=== PATIENT | male | born 1965 | race Caucasian/White ===

== ENCOUNTER 2017-07-25 06:55 | Day surgery (SDC) | payer BC, OTHER ==
[~2017-07-25 06:55] MED LIST: FLU VACC QS2017-18 36 mo. & older 0.5 ML SYRINGE IM ONE
[2017-07-25 07:26] VITALS: BMI 33.6
[2017-07-25 07:30] VITALS: BP 114/62; TEMP 97.7
--- NOTE | 2017-07-25 12:25 | CT ---
CT THORACIC SPINE WITH CONTRAST: (CT THORACIC MYELOGRAM) Date: 07/25/17 HISTORY: 52-year-old male with thoracic spine pain and thoracic radiculopathy. FINDINGS: Minimal, chronic-appearing anterior wedging of T10 and T11 vertebral bodies. These appear to be chron ic. Multilevel mild and mild to moderate degenerative disc changes throughout the upper, mid, and low er thoracic spine levels. The thoracic spinal cord is normal in size and position. Mild encroachment upon the left anterior aspect of the spinal canal by shallow central and left paracentral disc-osteop hyte complex at T11-12. Shallow, broad based midline disc-osteophytic bar complex at T10-11, abutting the ventral surface of the spinal cord, and causing mild central spinal canal stenosis. At T4-5, the re is a tiny central disc protrusion abutting the ventral surface of the spinal cord. No high grade n eural foraminal stenosis, or high grade central spinal canal stenosis, at any level. No destructive o sseous lesion. Multiple anterior end plate marginal osteophytes protruding into the prevertebral spac e, small and moderate sized at multiple levels. Otherwise, no major pathology of the perivertebral sp aces. No aneurysm of the descending thoracic aorta. There is a thin, plate-like rind of mild dependen t atelectasis abutting the right posterior pleural surface. No pleural effusion. IMPRESSION: Mild to moderate thoracic spondylosis. POS: TRUE
--- NOTE | 2017-07-25 13:11 | CT ---
CT CERVICAL SPINE WITH CONTRAST (CT CERVICAL MYELOGRAM): Date: 07-25-17 History: 52-year-old male with cervical radiculopathy. FINDINGS: Vertebral body heights are maintained. There are anterior metallic plate and screws at C5, C6, and C7 . Cervical spinal canal is diffusely small on a congenital bases due to developmentally short pedicle s. This is exacerbated by hypertrophic degenerative changes as described below. C1-2: No high grade degenerative changes of atlantoaxial and atlantooccipital joints. No central sten osis. C2-3: Mild central spinal canal stenosis, entirely on a developmental basis. Disc space maintained. N o high grade neural foraminal stenosis. No high grade degenerative facet changes. No high grade neura l foraminal stenosis. C3-4: Shallow, mild diffuse disc bulge exacerbates the developmentally small caliber spinal canal cau sing mild to moderate central spinal canal stenosis. Mild to moderate bilateral neural foraminal sten osis. Mild disc space narrowing. No high grade degenerative facet changes. C4-5: Disc space maintained. There is a central disc herniation which indents the spinal cord, and sl ightly posteriorly displaces it. This appears to be new or worse since the MRI of 01-26-14, but it was present on the MRI of 02-12-17, and has not significantly changed since then. This, together with the mild diffuse disc bulge, superimposed on the developmentally small caliber spinal canal, results in m oderate degree of central spinal canal stenosis. There is bilateral neural foraminal stenosis, modera te on the right and mild to moderate on the left. C5-6: The previously demonstrated broad based disc/osteophytic bar complex that was impinging on the spinal cord, causing severe central spinal canal stenosis, on the previous MRI of 12-13-16, has been s urgically resected. Currently, there is moderate central spinal canal stenosis, almost entirely on a developmental basis. Bilateral uncinate process osteophytes remain, causing severe chronic bilateral neural foraminal stenosis. C6-7: Previously on the MRI there was severe central spinal canal stenosis and chronic cord impingeme nt due to asymmetrically broad based/disc osteophyte complex, asymmetrically worse on the left side t harrison the right, impinging on the spinal cord. Currently on the CT, this area is difficult to evaluate because of streak artifact from the shoulders and from the hardware, but there may have been surgical resection of that disc/osteophyte complex. Currently there continues to be moderate to severe centra l spinal canal stenosis on a developmental basis, but the image resolution is poor at this level with regard to the spinal canal. Bilateral moderate to severe neural foraminal stenosis. No high grade de generative facet changes. C7-T1: Mild central canal stenosis almost entirely on a developmental basis. Bilateral moderate neura l foraminal stenosis. Mild to moderate bilateral degenerative facet changes. IMPRESSION: 1. Cervical spinal canal is diffusely small in caliber on a congenital basis due to developmentally s hort pedicles. This is exacerbated by cervical spondylosis. 2. Mild to moderate cervical spondylosis. 3. Status post anterior cervical discectomy and fusion at C5-6-7, with improvement in the previously severe central spinal canal stenoses at those levels. 4. The central disc herniation chronically impinging on the spinal cord at C4-5 remains. 5. Bilateral neuroforaminal stenosis at multiple levels, worst at C5-6. 6. Moderate facet osteoarthrosis bilaterally at C7-T1. POS: TRUE
--- NOTE | 2017-07-25 13:25 | RAD ---
MYELOGRAM CERVICAL MYELOGRAM THORACIC: Date: 07/25/17 HISTORY: 52-year-old male with cervicalgia, cervical radiculopathy, and thoracic spine pain. TECHNIQUE: Signed, informed consent obtained. Patient placed in prone [place] position on fluoroscopy table. Lower b ack prepped and draped in the usual sterile fashion. 25 gauge needle used to apply buffered lidocaine superficially and deeply. 22 gauge spinal needle advanced into spinal canal from right paramedian ap proach at the L4-5 level under brief, intermittent fluoroscopy. Upon brisk return of clear CSF, a tot al of 10 mL of CSF was slowly removed. A total of 10 mL of Isovue M300 was injected intrathecally. Ne edle was removed. The table was tilted in the prone Trendelenburg position to allow the contrast to f low into the thoracic spine and cervical spine. The patient was taken to CT. The patient tolerated th e procedure well. No complications. FINDINGS: There is multilevel mild to moderate degenerative disc disease throughout the thoracic spine. Minimal chronic loss of height of the T11 and T12 levels. Moderate disc space narrowing at L3-4 in the lumba r spine with end plate osteophyte encroachment upon the anterior aspect of the spinal canal. At least mild central spinal canal stenosis at L3-4 on the single, limited myelographic image frontal view of the lumbar spine. Contrast flows into the thoracic spinal canal and cervical spinal canal. ACDF hard hillman at C5-6-7. Slight reversal of curvature in the cervical spine. Developmentally small caliber spi nal canal of the cervical spine. IMPRESSION: 1. Successful thoracic and cervical myelogram. 2. See separate reports of the CT myelograms of the thoracic spine and cervical spine. 3. Status post anterior cervical diskectomy and fusion at C5-6-7. 4. Developmentally small caliber cervical spinal canal. 5. Mild to moderate thoracic spondylosis. 6. Moderate degenerative disc disease at L3-4 in the lumbar spine. POS: [facility]
== END 2017-07-25 12:00 | disposition home or self-care (01) ==
LOC: RAD 06:55
PROVIDERS: ATTEND Neurological Surgery
PROC: B01B1ZZ Fluoroscopy of Spinal Cord using Low Osmolar Contrast (ICD-10-PCS; principal; 2017-07-25)
DX: M54.12 Radiculopathy, cervical region (principal); M54.6 Pain in thoracic spine; E03.9 Hypothyroidism, unspecified; E29.1 Testicular hypofunction; M47.814 Spondylosis without myelopathy or radiculopathy, thoracic region; K21.9 Gastro-esophageal reflux disease without esophagitis; F41.0 Panic disorder [episodic paroxysmal anxiety]; F32.9 Major depressive disorder, single episode, unspecified; Z79.899 Other long term (current) drug therapy; Z88.5 Allergy status to narcotic agent; Z88.8 Allergy status to other drugs, medicaments and biological substances; Z98.84 Bariatric surgery status; Z98.1 Arthrodesis status; Z98.890 Other specified postprocedural states; Z87.891 Personal history of nicotine dependence
CPT/HCPCS: 62305; 72126; 72129

== ENCOUNTER 2018-04-24 11:51 | Inpatient (IN) | payer BC, OTHER ==
[~2018-04-24 11:51] MED LIST changes: -FLU VACC QS2017-18 36 mo. & older 0.5 ML SYRINGE IM ONE; +ISOVUE-370 76%-LOCM 1 ML ONE; +Iopamidol 370 76% 50 ML VIAL FS ONE
[2018-04-24 12:32] LABS: #Lymphocytes 0.6 thou/uL (1.20-3.40); #Monocytes 0.8 thou/uL (0.11-0.59); #Neutrophils 4.2 thou/uL (1.40-6.50); %Basophils 0.1 % (0.0-1.0); %Eosinophils 0.4 % (0.0-10.0); %Lymphocytes 9.9 % (21.0-51.0); %Monocytes 13.5 % (0.0-10.0); %Neutrophils 76.2 % (42.0-75.0); Hemoglobin 15.2 g/dL (14.0-18.0); Mean Corpuscular HGB CONC 34.8 g/dL (32.0-36.0); Mean Corpuscular Hemoglobin 31.3 pg (27.0-31.0); Mean Platelet Volume 7.9 fL (7.4-10.4); Platelet Count 158 thou/uL (130-400); RBC Distribution Width 13.2 % (11.5-14.5); Red Blood Cell (RBC) Count 4.84 mill/uL (4.70-6.10); White Blood Cell (WBC) Count 5.6 thou/uL (4.8-10.8)
[2018-04-24 12:58] LABS: ALT (SGPT) 17 U/L (8-55); AST (SGOT) 20 U/L (5-34); Albumin 3.9 g/dL (3.5-5.0); Alkaline Phosphatase 54 U/L (40-150); Anion Gap 14 mmol/L (10-20); BUN (Urea Nitrogen) 13 mg/dL (8.4-25.7); Bilirubin, Total 0.9 mg/dL (0.2-1.2); Calc. Creatinine Clearance 0 mL/min (70-130); Calcium 9.2 mg/dL (7.8-10.44); Carbon Dioxide 25 mmol/L (22-29); Chloride 102 mmol/L (98-107); Estimated GFR-MDRD 78; Globulin 3.3 g/dL (2.4-3.5); Glucose 143 mg/dL (70-105); Potassium 4.2 mmol/L (3.5-5.1); Protein, Total 7.2 g/dL (6.0-8.3); Sodium 137 mmol/L (136-145)
[2018-04-24] MEDS ORDERED: Ondansetron HCl/PF 4 MG/2 ML Vial ONE ×2 (13:01→14:43)
[2018-04-24] MEDS ORDERED: Morphine 4 MG/ML VIAL ONE (14:22)
[2018-04-24] MEDS ORDERED: Promethazine HCl 25 MG/ML VIAL ONE (15:08)
[2018-04-24] MEDS ORDERED: Water For Inject, Bacteriostat 30 ML ONE (15:08)
[2018-04-24] MEDS ORDERED: Pantoprazole 40 MG VIAL ONE (15:08)
--- NOTE | 2018-04-24 16:35 | CT ---
CT ABDOMEN AND PELVIS WITH IV CONTRAST: DATE: 04/24/18. HISTORY: Abdominal pain since Sunday that started shortly after eating. FINDINGS: There is mild atelectasis present at each lung base. Post cholecystectomy changes are noted. The liver, spleen, pancreas, bilateral adrenal glands, kidneys, and urinary bladder demonstrate a nor mal CT appearance. Vascular calcifications are seen in the abdominal aorta and involving the iliac a rteries. There are dilated loops of small bowel measuring up to 4.2 cm in diameter. The most distal loops of ileum are normal in caliber. However, there is only a smooth transition poi nt located within the left lower quadrant. An abrupt transition point is not visualized, but finding s are worrisome for partial small bowel obstruction. There is a small amount of fluid/mesenteric stephanie ma within the left aspect of the abdomen in the region of tapering to more normal-caliber small bowel . No fluid collection is seen to suggest an abscess. There is no lymphadenopathy seen. Degenerative changes are noted in the spine. IMPRESSION: 1. Findings suggestive of a low-grade small bowel obstruction with gradual transition to more normal -caliber loops of small bowel within the distal ileum located in the left lower quadrant. 2. Very small amount of free fluid/mesenteric edema. 3. Colonic diverticulosis. POS: [facility]
[2018-04-24 17:41] LABS: Bilirubin Negative (Negative); Blood, Urine Negative (Negative); Clarity CLEAR (Clear); Glucose, Urine (Dipstick) Negative (Negative); Leukocyte Negative (Negative); Nitrite Negative (Negative); Protein, Urine (Dipstick) Negative (Neg-Trace); Urobilinogen 0.2 mg/dL (0.2-1.0)
[2018-04-24 17:45] LABS: Specific Gravity, Urine 1.051 (1.002-1.036)
--- NOTE | 2018-04-24 17:46 | HP ---
CHIEF COMPLAINT: Nausea, vomiting. HISTORY OF PRESENT ILLNESS: This is a 53-year-old male who is status post laparoscopic gastric sleev e back in 2012, who now presents with a 4-day history of nausea, bilious vomiting associated with abd ominal distention and pain. He initially started at 361 pounds, lost down to 250 pounds. He has not seen me in a few years, because he has been doing so well. CT scan shows evidence of partial small- bowel obstruction. The patient's pain is described as 4/10, diffuse, mild. He has vomited even stil l a few times here in the emergency room. PAST MEDICAL HISTORY: Hypothyroidism, depression, left inguinal hernia, cholecystitis. PAST SURGICAL HISTORY: Laparoscopic sleeve gastrectomy, left inguinal hernia, laparoscopic cholecyst ectomy. MEDICATIONS: Medicines taken daily include levothyroxine, pantoprazole. ALLERGIES TO MEDICINES: CODEINE, SULFACET, SOMA. REVIEW OF SYSTEMS: Ten-system review of systems is otherwise negative unless described above. FAMILY HISTORY: Noncontributory to GI malignancy or anesthetic-related complication. PHYSICAL EXAMINATION: VITAL SIGNS: His blood pressure is 147/85. His pulse is 85. He is afebrile. HEENT: Sclerae are anicteric. Oropharynx is clear. NECK: No lymphadenopathy. CHEST: Clear. HEART: Regular rate and rhythm. ABDOMEN: Soft. Diffusely tender and distended with decreased bowel sounds. Well-healed abdominal i ncisions without obvious hernia. EXTREMITIES: No ischemia or edema to extremities. LABORATORY AND X-RAY FINDINGS: CT scan shows transition zone in ileum, partial small-bowel obstructi on. LABORATORY DATA: White blood cell count is 5, hemoglobin 15, platelet count is 158. Sodium 137, pot assium 4.2, creatinine 1. ASSESSMENT: Partial small-bowel obstruction, history of morbid obesity, 100 plus pound weight loss a fter gastric sleeve, hypothyroidism. PLAN: Admit to the surgical floor to my service. NG tube has been placed to low intermittent wall s uction. Check daily labs. Hopefully, will resolve non-operatively.
[2018-04-24] MEDS ORDERED: Promethazine HCl 25 MG/ML VIAL IM PRN (18:14)
[2018-04-24] MEDS ORDERED: hydrALAZINE 20 MG/ML VIAL SLOW IVP PRN (18:14)
[2018-04-24] MEDS ORDERED: Dextrose 50% Abboject 50 ML SYRINGE SLOW IVP PRN (18:14)
[2018-04-24] MEDS ORDERED: Dextrose 5% in Water 1,000 ML IV PRN (18:14)
[2018-04-24] MEDS ORDERED: Morphine 4 MG/ML VIAL SLOW IVP PRN (18:14)
[2018-04-24] MEDS: D5 1/2 NS w/20 mEq KCL 1,000 ML IV SCH (18:50)
[2018-04-24 19:28] VITALS: BMI 34.3
[2018-04-24] MEDS: Thiamine HCl 200 MG/2 ML VIAL SLOW IVP SCH (21:15)
[2018-04-24] MEDS: Enoxaparin Sodium 40 MG/0.4 ML SYRINGE SC SCH (21:15)
[2018-04-25] MEDS: D5 1/2 NS w/20 mEq KCL 1,000 ML IV SCH ×3 (03:13→21:00)
[2018-04-25 06:23] LABS: Anion Gap 6 mmol/L (10-20); BUN (Urea Nitrogen) 13 mg/dL (8.4-25.7); Calc. Creatinine Clearance 120 mL/min (70-130); Calcium 8.3 mg/dL (7.8-10.44); Carbon Dioxide 32 mmol/L (22-29); Chloride 103 mmol/L (98-107); Estimated GFR-MDRD 67; Glucose 125 mg/dL (70-105); Potassium 3.8 mmol/L (3.5-5.1); Sodium 137 mmol/L (136-145)
[2018-04-25 07:01] LABS: Band 21 % (5-11); Eosinophils 7 % (0-10); Hemoglobin 13.6 g/dL (14.0-18.0); Lymphocytes 31 % (21-51); MDiff Complete? YES; Mean Corpuscular HGB CONC 34.4 g/dL (32.0-36.0); Mean Corpuscular Hemoglobin 31.3 pg (27.0-31.0); Mean Corpuscular Volume 91.2 fL (78.0-98.0); Mean Platelet Volume 7.9 fL (7.4-10.4); Monocytes 17 % (0-10); Neutrophil 23 % (42-75); Platelet Count 144 thou/uL (130-400); RBC Distribution Width 13.3 % (11.5-14.5); Red Blood Cell (RBC) Count 4.33 mill/uL (4.70-6.10); White Blood Cell (WBC) Count 5.5 thou/uL (4.8-10.8)
[2018-04-25] MEDS: Pantoprazole 40 MG VIAL IVP SCH (09:11)
--- NOTE | 2018-04-25 11:17 | PRG ---
DATE OF SERVICE: 04/25/2018 Mr. Mejia feels better today. He actually had a small bowel movement and passed a small amount of gas. PHYSICAL EXAMINATION: VITAL SIGNS: He is afebrile. His vital signs are stable. ABDOMEN: Softer, less distended, less tender today. He has occasional bowel sounds. LABORATORY DATA: White blood cell count is 5, hemoglobin 13, platelet count is 144. Sodium 137, pot assium 3.8, creatinine 1.14. ASSESSMENT: Partial small-bowel obstruction. PLAN: Continue NG tube decompression. His KUB shows persistent dilated small intestine. Plan Gastr ografin small bowel follow through tomorrow.
--- NOTE | 2018-04-25 12:10 | RAD ---
TWO VIEWS OF THE ABDOMEN: Indication: Small bowel obstruction. FINDINGS: There are dilated loops of small bowel within the upper central abdomen with differential airfluid le vels. Gastric catheter in place. The catheter is coiled in the region of the fundus and projects back into the distal esophagus. Recommend re-positioning. IMPRESSION: 1. Moderate to prominent partial small bowel obstruction. 2. Gastric catheter coiled within the region of the distal esophagus. Recommend re-positioning. POS: TRUE
[2018-04-25] MEDS: Enoxaparin Sodium 40 MG/0.4 ML SYRINGE SC SCH (20:24)
[2018-04-25] MEDS: Thiamine HCl 200 MG/2 ML VIAL SLOW IVP SCH (20:24)
[2018-04-26] MEDS: D5 1/2 NS w/20 mEq KCL 1,000 ML IV SCH ×4 (00:51→16:34)
[2018-04-26 05:41] LABS: Anion Gap 8 mmol/L (10-20); BUN (Urea Nitrogen) 11 mg/dL (8.4-25.7); Calc. Creatinine Clearance 146 mL/min (70-130); Carbon Dioxide 27 mmol/L (22-29); Chloride 105 mmol/L (98-107); Estimated GFR-MDRD 84; Glucose 116 mg/dL (70-105); Potassium 3.8 mmol/L (3.5-5.1); Sodium 136 mmol/L (136-145)
[2018-04-26 06:04] LABS: Band 7 % (5-11); Eosinophils 1 % (0-10); Hemoglobin 13.1 g/dL (14.0-18.0); Lymphocytes 13 % (21-51); MDiff Complete? YES; Mean Corpuscular HGB CONC 34.7 g/dL (32.0-36.0); Mean Corpuscular Hemoglobin 31.5 pg (27.0-31.0); Mean Corpuscular Volume 90.8 fL (78.0-98.0); Mean Platelet Volume 7.9 fL (7.4-10.4); Monocytes 19 % (0-10); Neutrophil 59 % (42-75); Platelet Count 141 thou/uL (130-400); RBC Distribution Width 13.2 % (11.5-14.5); Reactive Lymphocytes 1 % (0-10); Red Blood Cell (RBC) Count 4.16 mill/uL (4.70-6.10); White Blood Cell (WBC) Count 6.3 thou/uL (4.8-10.8)
[2018-04-26] MEDS: Pantoprazole 40 MG VIAL IVP SCH (08:16)
[2018-04-26] MEDS ORDERED: MD-Gastroview 120 ML BOT ONE (10:15)
--- NOTE | 2018-04-26 15:41 | PDOC.GSPN ---
Surgery Progress Note: Subj - Subjective Patient reports: feels better (Having multiple bowel movements after SBFT) Surgery Progress Note: Obj - Vital signs Vital signs: Vital Signs - Most Recent Temp Pulse Resp BP Pulse Ox 98.0 F 108 H 16 131/74 94 L 04/26/18 08:16 04/26/18 08:16 04/26/18 08:16 04/26/18 07:19 04/26/18 08:16 - Physical Exam General: no distress Cardiovascular: regular rate and rhythm Respiratory: clear to auscultation Abdomen: soft, non tender, other (still distended) Surgery Progress Note: Results - Labs Result Diagrams: 04/26/18 04:52 04/26/18 04:52 Lab results: Laboratory Results - last 24 hr 04/26/18 04/26/18 04:52 04:52 WBC 6.3 RBC 4.16 L Hgb 13.1 L Hct 37.8 L MCV 90.8 MCH 31.5 H MCHC 34.7 RDW 13.2 Plt Count 141 MPV 7.9 Neutrophils % (Manual) 59 Band Neuts % (Manual) 7 Lymphocytes % (Manual) 13 L Reactive Lymphs % 1 Monocytes % (Manual) 19 H Eosinophils % (Manual) 1 Sodium 136 Potassium 3.8 Chloride 105 Carbon Dioxide 27 Anion Gap 8 L BUN 11 Creatinine 0.94 Estimated GFR (MDRD) 84 Glucose 116 H Calcium 8.0 Surgery Progress Note: A/P - Problem (1) Small bowel obstruction Current Visit: Yes Code(s): K56.609 - UNSP INTESTNL OBST, UNSP TO PARTIAL VERSUS COMPLETE OBST Status: Acute - Plan Plan: DC NG -try clear liquids -home tomorrow if tolerates clears
[2018-04-26] MEDS ORDERED: Loratadine 10 MG TAB PO PRN (15:43)
--- NOTE | 2018-04-26 16:33 | RAD ---
GASTROGRAFIN SMALL BOWEL FOLLOW THROUGH: 04/26/18 INDICATION: Small bowel obstruction. COMPARISON: Two views of the abdomen dated 04/25/18. FINDINGS: Gastrografin small bowel follow through was performed over a 6.5 hour time period. There are numerous dilated loops of small bowel seen within the central abdomen. At 6.5 hours, there is eventual passag e of contrast into the level of the right hemicolon. No acute osseous abnormality is evident. Gastric catheter is seen within the left upper quadrant of the abdomen. Cholecystectomy clips are seen in th e right upper quadrant. IMPRESSION: Findings most consistent with high grade partial small bowel obstruction with eventual passage of gas trografin contrast to the colon by 6.5 hours. POS: TRUE
[2018-04-26] MEDS: Enoxaparin Sodium 40 MG/0.4 ML SYRINGE SC SCH (20:01)
[2018-04-26] MEDS: Thiamine HCl 200 MG/2 ML VIAL SLOW IVP SCH (20:01)
[2018-04-27] MEDS: D5 1/2 NS w/20 mEq KCL 1,000 ML IV SCH ×2 (01:54→15:53)
[2018-04-27] MEDS: Levothyroxine Sodium 50 MCG TAB PO SCH (06:09)
[2018-04-27] MEDS: Cyanocobalamin (Vitamin B-12) 1,000 MCG TAB PO SCH (08:29)
[2018-04-27] MEDS: Ubidecarenone 50 MG CAP PO SCH (08:29)
[2018-04-27] MEDS: Gabapentin 100 MG CAP PO SCH (08:30)
[2018-04-27] MEDS: Bupropion 150 MG XL TAB PO SCH (08:30)
[2018-04-27] MEDS: Pantoprazole 40 MG VIAL IVP SCH (08:30)
[2018-04-27] MEDS: Ascorbic Acid 500 mg Chewable Tablet PO SCH (08:30)
[2018-04-27] MEDS: Ondansetron HCl/PF 4 MG/2 ML Vial IVP PRN (15:43)
[2018-04-27] MEDS: Enoxaparin Sodium 40 MG/0.4 ML SYRINGE SC SCH (19:59)
[2018-04-27] MEDS: Thiamine HCl 200 MG/2 ML VIAL SLOW IVP SCH (20:05)
--- NOTE | 2018-04-27 23:01 | PDOC.GSPN ---
Surgery Progress Note: Subj - Subjective Narrative: I saw the patient this morning he was feeling good and having bowel movements. He was tolerating his clears and his abdominal exam was benign. He was advanced to full liquids with plans to possibly discharge home on full liquids as tolerated. He initially tolerated this well but then began having belching and some abdominal distention even as he continued to pass flatus. He was back down to clear liquids for this reason. Surgery Progress Note: Obj - Vital signs Vital signs: Vital Signs - Most Recent Temp Pulse Resp BP Pulse Ox 98.7 F 76 16 140/78 95 04/27/18 20:00 04/27/18 20:00 04/27/18 20:00 04/27/18 20:00 04/27/18 20:00 Surgery Progress Note: Results - Labs Result Diagrams: 04/26/18 04:52 04/26/18 04:52
[2018-04-28] MEDS: Levothyroxine Sodium 50 MCG TAB PO SCH (05:37)
[2018-04-28] MEDS: D5 1/2 NS w/20 mEq KCL 1,000 ML IV SCH (05:37)
[2018-04-28] MEDS: Gabapentin 100 MG CAP PO SCH (08:17)
[2018-04-28] MEDS: Bupropion 150 MG XL TAB PO SCH (08:17)
[2018-04-28] MEDS: Ascorbic Acid 500 mg Chewable Tablet PO SCH (08:17)
[2018-04-28] MEDS: Pantoprazole 40 MG VIAL IVP SCH (08:17)
[2018-04-28] MEDS: Cyanocobalamin (Vitamin B-12) 1,000 MCG TAB PO SCH (08:17)
[2018-04-28] MEDS: Ubidecarenone 50 MG CAP PO SCH (08:17)
--- NOTE | 2018-04-28 11:41 | RAD ---
KUB AND UPRIGHT: Date: 04/28/18 HISTORY: Small bowel obstruction. COMPARISON: CT examination done 04/24/18. FINDINGS: There are dilated small bowel loops, also air within the colon. The overall appearance is fairly etienne lar to the previous study. No free air. Postop cholecystectomy changes are seen. IMPRESSION: Moderately dilated small bowel loops with air within the colon consistent with a partial small bowel obstruction. POS: [facility]
--- NOTE | 2018-04-28 16:12 | PDOC.GSPN ---
Surgery Progress Note: Subj - Subjective Narrative: Patient with nausea vomiting and bloating after advancing to full yesterday. He was backed down to clears again and is feeling good again. Occasionally he has some crampy pain but then he passes gas or has a bowel movement and it resolves. KUB still shows dilated loops of small bowel. Abdomen is soft slightly distended but nontender and bowel sounds are present. Assessment/plan: Partial small bowel obstruction, likely persistent since he did not tolerate advancement of diet yesterday. I recommended to the patient that we consider making him nothing by mouth again but he is doing so well clears he is hesitant to proceed with this plan. Instead we'll leave him on the clear liquids and see if he tolerates some ensure. If he has any bloating or nausea have asked him to make himself strictly nothing by mouth. Ultimately if he does not tolerate advancement of diet he will require repeat surgery. He hasn 't really tolerated regular food and week some going to check some nutrition labs in the morning and start him on PPN. Surgery Progress Note: Obj - Vital signs Vital signs: Vital Signs - Most Recent Temp Pulse Resp BP Pulse Ox 99.3 F 66 18 126/68 97 04/28/18 11:16 04/28/18 11:16 04/28/18 11:16 04/28/18 11:16 04/28/18 11:16 Surgery Progress Note: Results - Labs Result Diagrams: 04/26/18 04:52 04/26/18 04:52
[2018-04-28] MEDS ORDERED: D5W-AA 4.25% with LYTES 1,000 ML BAG IV SCH (16:15)
[2018-04-28] MEDS: D5W-AA 4.25% with LYTES 1,000 ML IV SCH (17:32)
[2018-04-28] MEDS: Enoxaparin Sodium 40 MG/0.4 ML SYRINGE SC SCH (20:41)
[2018-04-28] MEDS: Thiamine HCl 200 MG/2 ML VIAL SLOW IVP SCH (20:42)
[2018-04-28] MEDS: Ondansetron HCl/PF 4 MG/2 ML Vial IVP PRN (21:53)
[2018-04-29] MEDS: D5W-AA 4.25% with LYTES 1,000 ML IV SCH ×2 (03:59→14:46)
[2018-04-29 05:45] LABS: INR-International Normal Ratio 1.2; PTT 32.6 SEC (22.9-36.1); Prothrombin Time 14.9 SEC (12.0-14.7)
[2018-04-29 05:46] LABS: #Eosinphils 0.3 thou/uL (0.0-0.7); #Lymphocytes 1.6 thou/uL (1.20-3.40); #Monocytes 0.9 thou/uL (0.11-0.59); #Neutrophils 4.5 thou/uL (1.40-6.50); %Basophils 0.3 % (0.0-1.0); %Eosinophils 4.1 % (0.0-10.0); %Lymphocytes 21.9 % (21.0-51.0); %Neutrophils 61.7 % (42.0-75.0); Hemoglobin 12.7 g/dL (14.0-18.0); Mean Corpuscular HGB CONC 34.2 g/dL (32.0-36.0); Mean Corpuscular Hemoglobin 31.5 pg (27.0-31.0); Mean Corpuscular Volume 92.1 fL (78.0-98.0); Mean Platelet Volume 7.8 fL (7.4-10.4); Platelet Count 150 thou/uL (130-400); Red Blood Cell (RBC) Count 4.04 mill/uL (4.70-6.10); White Blood Cell (WBC) Count 7.3 thou/uL (4.8-10.8)
[2018-04-29 06:03] LABS: ALT (SGPT) 24 U/L (8-55); AST (SGOT) 20 U/L (5-34); Albumin 3.3 g/dL (3.5-5.0); Alkaline Phosphatase 47 U/L (40-150); Anion Gap 10 mmol/L (10-20); BUN (Urea Nitrogen) 12 mg/dL (8.4-25.7); Bilirubin, Total 0.4 mg/dL (0.2-1.2); Calc. Creatinine Clearance 159 mL/min (70-130); Calcium 8.3 mg/dL (7.8-10.44); Carbon Dioxide 27 mmol/L (22-29); Cardiac Risk 3.3 (Less than 4.5); Chloride 106 mmol/L (98-107); Cholesterol 86 mg/dl (< 200 Desired); Estimated GFR-MDRD Greater than 90; Globulin 2.7 g/dL (2.4-3.5); Glucose 112 mg/dL (70-105); HDL Cholesterol 26 mg/dL (>60 Neg Risk); LDL Cholesterol, Calculated 41 mg/dL; Magnesium 2.2 mg/dL (1.6-2.6); Phosphorus 3.4 mg/dL (2.3-4.7); Potassium 4.1 mmol/L (3.5-5.1); Sodium 139 mmol/L (136-145); Triglycerides 96 mg/dL (Less than 150)
[2018-04-29] MEDS: Levothyroxine Sodium 50 MCG TAB PO SCH (06:04)
[2018-04-29] MEDS: Cyanocobalamin (Vitamin B-12) 1,000 MCG TAB PO SCH (07:55)
[2018-04-29] MEDS: Ubidecarenone 50 MG CAP PO SCH (07:56)
[2018-04-29] MEDS: Ascorbic Acid 500 mg Chewable Tablet PO SCH (07:57)
[2018-04-29] MEDS: Bupropion 150 MG XL TAB PO SCH (07:57)
[2018-04-29] MEDS: Pantoprazole 40 MG VIAL IVP SCH (07:59)
[2018-04-29] MEDS: Gabapentin 100 MG CAP PO SCH (08:00)
--- NOTE | 2018-04-29 16:49 | PDOC.GSPN ---
Surgery Progress Note: Subj - Subjective Narrative: Had another episode of bloating and cramping last night, which gradually resolved w zofran and passage of flatus. Feels fine today. Since he seems to have a persistent PSBO I will leave him on clears + ensure today and make him NPO after midnight; he may need ASHLIE. Prealbumin was slightly down; cont ensure and PPN. Surgery Progress Note: Obj - Vital signs Vital signs: Vital Signs - Most Recent Temp Pulse Resp BP Pulse Ox 98.7 F 62 16 112/68 97 04/29/18 15:44 04/29/18 15:44 04/29/18 15:44 04/29/18 15:44 04/29/18 15:44 Surgery Progress Note: Results - Labs Result Diagrams: 04/29/18 05:15 04/29/18 05:15 Lab results: Laboratory Results - last 24 hr 04/29/18 04/29/18 04/29/18 05:15 05:15 05:15 WBC RBC Hgb Hct MCV MCH MCHC RDW Plt Count MPV Neutrophils % Lymphocytes % Monocytes % Eosinophils % Basophils % Neutrophils # Lymphocytes # Monocytes # Eosinophils # Basophils # PT 14.9 H INR 1.2 APTT 32.6 Sodium 139 Potassium 4.1 Chloride 106 Carbon Dioxide 27 Anion Gap 10 BUN 12 Creatinine 0.86 Estimated GFR (MDRD) Greater than 90 Glucose 112 H Calcium 8.3 Phosphorus 3.4 Magnesium 2.2 Total Bilirubin 0.4 AST 20 ALT 24 Alkaline Phosphatase 47 Serum Total Protein 6.0 Albumin 3.3 L Globulin 2.7 Albumin/Globulin Ratio 1.2 Prealbumin 14.0 L Triglycerides 96 Cholesterol 86 LDL Cholesterol, Calc 41 HDL Cholesterol 26 Heart Disease Risk Ratio 3.3 04/29/18 05:15 WBC 7.3 RBC 4.04 L Hgb 12.7 L Hct 37.3 L MCV 92.1 MCH 31.5 H MCHC 34.2 RDW 13.0 Plt Count 150 MPV 7.8 Neutrophils % 61.7 Lymphocytes % 21.9 Monocytes % 12.0 H Eosinophils % 4.1 Basophils % 0.3 Neutrophils # 4.5 Lymphocytes # 1.6 Monocytes # 0.9 H Eosinophils # 0.3 Basophils # 0.0 PT INR APTT Sodium Potassium Chloride Carbon Dioxide Anion Gap BUN Creatinine Estimated GFR (MDRD) Glucose Calcium Phosphorus Magnesium Total Bilirubin AST ALT Alkaline Phosphatase Serum Total Protein Albumin Globulin Albumin/Globulin Ratio Prealbumin Triglycerides Cholesterol LDL Cholesterol, Calc HDL Cholesterol Heart Disease Risk Ratio
[2018-04-29] MEDS: Thiamine HCl 200 MG/2 ML VIAL SLOW IVP SCH (21:42)
[2018-04-29] MEDS: Enoxaparin Sodium 40 MG/0.4 ML SYRINGE SC SCH (21:42)
[2018-04-30] MEDS: D5W-AA 4.25% with LYTES 1,000 ML IV SCH ×3 (06:42→22:04)
[2018-04-30] MEDS: Levothyroxine Sodium 50 MCG TAB PO SCH (06:42)
--- NOTE | 2018-04-30 08:50 | PDOC.GSPN ---
Surgery Progress Note: Subj - Subjective Narrative: No nausea now. Passing gas. Still feels distended but having bowel movements Surgery Progress Note: Obj - Vital signs Vital signs: Vital Signs - Most Recent Temp Pulse Resp BP Pulse Ox 98.1 F 68 16 103/57 L 97 04/30/18 07:06 04/30/18 07:06 04/30/18 07:06 04/30/18 07:06 04/30/18 04:54 - Physical Exam General: no distress Cardiovascular: regular rate and rhythm Respiratory: clear to auscultation Abdomen: soft, non tender, other (Minimal distended. Positive bowel sounds.) Surgery Progress Note: Results - Labs Result Diagrams: 04/29/18 05:15 04/29/18 05:15 Surgery Progress Note: A/P - Problem (1) Small bowel obstruction Current Visit: Yes Code(s): K56.609 - UNSP INTESTNL OBST, UNSP TO PARTIAL VERSUS COMPLETE OBST Status: Acute - Plan Plan: Feels fine this am. -Try clears/fulls today -to OR tomorrow if doesn't tolerate
[2018-04-30] MEDS: Ascorbic Acid 500 mg Chewable Tablet PO SCH (08:53)
[2018-04-30] MEDS: Pantoprazole 40 MG VIAL IVP SCH (08:54)
[2018-04-30] MEDS: Cyanocobalamin (Vitamin B-12) 1,000 MCG TAB PO SCH (08:54)
[2018-04-30] MEDS: Ubidecarenone 50 MG CAP PO SCH (08:54)
[2018-04-30] MEDS: Gabapentin 100 MG CAP PO SCH (08:54)
[2018-04-30] MEDS: Bupropion 150 MG XL TAB PO SCH (08:54)
[2018-04-30] MEDS: Ondansetron HCl/PF 4 MG/2 ML Vial IVP PRN (18:34)
[2018-04-30] MEDS: Thiamine HCl 200 MG/2 ML VIAL SLOW IVP SCH (20:51)
[2018-04-30] MEDS: Enoxaparin Sodium 40 MG/0.4 ML SYRINGE SC SCH (20:51)
[2018-05-01] MEDS: D5W-AA 4.25% with LYTES 1,000 ML IV SCH ×3 (03:20→23:23)
[2018-05-01] MEDS: Levothyroxine Sodium 50 MCG TAB PO SCH (05:48)
--- NOTE | 2018-05-01 07:59 | PDOC.GSPN ---
Surgery Progress Note: Subj - Subjective Narrative: More bloating and nausea yesterday with clear liquids, had more distention and pain that has resolved Surgery Progress Note: Obj - Vital signs Vital signs: Vital Signs - Most Recent Temp Pulse Resp BP Pulse Ox 98.3 F 75 16 108/66 95 05/01/18 07:20 05/01/18 07:20 05/01/18 07:20 05/01/18 07:20 05/01/18 07:20 - Physical Exam General: no distress Cardiovascular: regular rate and rhythm Respiratory: clear to auscultation Abdomen: soft, non tender, nondistended, decreased bowel sounds Surgery Progress Note: Results - Labs Result Diagrams: 04/29/18 05:15 04/29/18 05:15 Surgery Progress Note: A/P - Problem (1) Small bowel obstruction Current Visit: Yes Code(s): K56.609 - UNSP INTESTNL OBST, UNSP TO PARTIAL VERSUS COMPLETE OBST Status: Acute - Plan Plan: SBFT showed delayed passage, unable to advance liquid diet -laparoscopy today, possible laparotomy
[2018-05-01] MEDS: Ubidecarenone 50 MG CAP PO SCH (09:48)
[2018-05-01] MEDS: Cyanocobalamin (Vitamin B-12) 1,000 MCG TAB PO SCH (09:48)
[2018-05-01] MEDS: Ascorbic Acid 500 mg Chewable Tablet PO SCH (09:48)
[2018-05-01] MEDS: Bupropion 150 MG XL TAB PO SCH (09:48)
[2018-05-01] MEDS: Gabapentin 100 MG CAP PO SCH (09:49)
[2018-05-01] MEDS: Pantoprazole 40 MG VIAL IVP SCH (09:49)
[2018-05-01] MEDS ORDERED: Lidocaine 1% PF 5 ML VIAL ONE (12:18)
[2018-05-01] MEDS ORDERED: PROPOFOL 200 MG/20 ML VIAL ONE (12:18)
[2018-05-01] MEDS ORDERED: Succinylcholine Chloride 20 MG/ML 10 ml SYRINGE FS ONE (12:18)
[2018-05-01] MEDS ORDERED: Glycopyrrolate 0.2 MG/ML 5 ML SYRINGE ONE (12:18)
[2018-05-01] MEDS ORDERED: CEFAZOLIN/Water 2 GM/20 ML SYRINGE ONE (17:44)
[2018-05-01] MEDS ORDERED: Midazolam HCl 2 mg/2 ml Vial ONE (17:45)
[2018-05-01] MEDS ORDERED: Bupivacaine/Epinephrine 0.25% 30 ML VIAL ONE (17:45)
[2018-05-01] MEDS ORDERED: Fentanyl 100 MCG/2 ML VIAL ONE ×3 (18:09→19:26)
[2018-05-01] MEDS ORDERED: SUGAMMADEX SODIUM 200 MG/2 ML VIAL ONE (18:49)
[2018-05-01] MEDS ORDERED: Ondansetron HCl/PF 4 MG/2 ML Vial IVP PRN (19:05)
[2018-05-01] MEDS ORDERED: Promethazine HCl 25 MG/ML VIAL IM PRN (19:05)
[2018-05-01] MEDS ORDERED: Promethazine HCl 25 MG/ML VIAL SLOW IVP PRN (19:05)
[2018-05-01] MEDS ORDERED: traMADol HCl 50 MG TAB PO PRN ×2 (19:56)
[2018-05-01] MEDS: Thiamine HCl 200 MG/2 ML VIAL SLOW IVP SCH (20:50)
[2018-05-01] MEDS: Enoxaparin Sodium 40 MG/0.4 ML SYRINGE SC SCH (20:52)
[2018-05-02] MEDS: D5W-AA 4.25% with LYTES 1,000 ML IV SCH (01:01)
[2018-05-02] MEDS: Levothyroxine Sodium 50 MCG TAB PO SCH (05:42)
[2018-05-02] MEDS: Ascorbic Acid 500 mg Chewable Tablet PO SCH (08:56)
[2018-05-02] MEDS: Gabapentin 100 MG CAP PO SCH (08:56)
[2018-05-02] MEDS: Cyanocobalamin (Vitamin B-12) 1,000 MCG TAB PO SCH (08:56)
[2018-05-02] MEDS: Ubidecarenone 50 MG CAP PO SCH (08:56)
[2018-05-02] MEDS: Bupropion 150 MG XL TAB PO SCH (08:57)
[2018-05-02] MEDS: Pantoprazole 40 MG VIAL IVP SCH (08:58)
[2018-05-02 09:02] VITALS: TEMP 98.3
[2018-05-02 12:57] VITALS: BP 147/73
--- NOTE | 2018-05-02 13:20 | DIS ---
DATE OF ADMISSION: 04/24/2018 DATE OF DISCHARGE: 05/02/2018 ADMIT DIAGNOSIS: Small-bowel obstruction. DISCHARGE DIAGNOSIS: Small-bowel obstruction. PROCEDURES: Diagnostic laparoscopy, lysis of adhesion 05/01/2018. CONDITION AT DISCHARGE: Improved. STAFF: Dr. Milan Sky. HOSPITAL COURSE: The patient was admitted, had early small bowel follow through that showed passage to the colon, although delayed, started on liquid diet. He did not tolerate that became more bloated . On 05/01/2018, patient was taken to the operating room by me for laparoscopy. His small bowel was run from ligament of Treitz to ileocecal valve. There was no significant obstruction; however, ther e was one single adhesion to the posterior abdominal wall that looked like it could have been the khris rce of the obstruction, this was low cut. Postop day 1, the patient is doing well. He started on cl ear liquids. He wants to go home. I recommended he do a few days of full liquids and then advanced diet before regular food. He will see me back in 2 weeks. Prescription given for tramadol and Zofran.
--- NOTE | 2018-05-03 11:43 | OP ---
DATE OF PROCEDURE: 05/01/2018. PREOPERATIVE DIAGNOSIS: Small-bowel obstruction. POSTOPERATIVE DIAGNOSIS: Small-bowel obstruction. PROCEDURE PERFORMED: Diagnostic laparoscopy with laparoscopic lysis of adhesion causing obstruction. SURGEON: Dr. Sky. ANESTHESIA: General. ESTIMATED BLOOD LOSS: Minimal. COMPLICATIONS: None. SPECIMEN: None. FINDINGS: Single adhesion in the posterior umbilicus. TECHNIQUE: The patient was taken to the operation room and placed supine on the table. After genera l anesthetic was obtained, the abdomen was shaved, prepped, and draped in a sterile fashion. A Bishop catheter had been placed. Curved incision was made below the umbilicus. Cautery was used to dissec t down to and score the fascia. Abdominal cavity entered bluntly using a Bri clamp. A 5 mm trocar was placed. High-flow pneumoperitoneum was obtained. Two left lower quadrant 5-mm ports were place d. The small bowel was run from the ileocecal valve proximally. There was an adhesion from the post erior peritoneum in the area of the umbilicus that was across the small intestine. This was taken do wn, releasing the obstruction. There were no other adhesions and the small intestine was marched all the way to the ligament of Treitz. No injury to any intra-abdominal structures. All port sites wer e infiltrated using local anesthetic. All ports are removed under camera visualization. Pneumoperit oneum was let down. PDS was used to close the fascial defect below the umbilicus. All incisions wer e irrigated and closed using 4-0 Monocryl and Dermabond. The patient returned to recovery in stable condition. All instrument counts, needle counts, lap counts were correct.
== END 2018-05-02 13:50 | disposition home or self-care (01) | DRG 337 ==
LOC: ERS 11:51 → SURG B 18:08 → SURG A 04-25 22:21
PROVIDERS: ADMIT Surgery; ATTEND Surgery
PROC: 0DN84ZZ Release Small Intestine, Percutaneous Endoscopic Approach (ICD-10-PCS; principal; 2018-05-01)
DX: K56.51 Intestinal adhesions [bands], with partial obstruction (principal); E03.9 Hypothyroidism, unspecified; Z88.5 Allergy status to narcotic agent; Z88.8 Allergy status to other drugs, medicaments and biological substances; Z79.899 Other long term (current) drug therapy; F32.9 Major depressive disorder, single episode, unspecified; Z98.84 Bariatric surgery status
CPT/HCPCS: 36415; 43752; 74019; 74177; 74250; 80048; 80053; 80061; 81003; 83605; 83690; 83735; 84100; 84134; 85025; 85610; 85730; 96361; 96374; 96375; 96376; A4216; C9113; J1650; J2001; J2250; J2270; J2405; J2550; J2704; J3010; J3411

== ENCOUNTER 2018-05-07 15:26 | Outpatient (CLI) | payer BC, OTHER ==
--- NOTE | 2018-05-07 17:29 | MRI ---
MRI CERVICAL SPINE WITHOUT CONTRAST: 05/07/18 HISTORY: Neck pain with bilateral shoulder, arm and hand pain/numbness. COMPARISON: 12/13/16. TECHNIQUE: Cervical spine MRI is performed without intravenous gadolinium administration. Multisequential, multi planar imaging is performed. FINDINGS: Interval cervical fusion hardware placement at C5, C6 and C7. There is associated metallic susceptibi lity artifact limiting evaluation of the associated vertebral body. Nevertheless, there is appropriat e T1 narrow signal intensity of the cervical vertebrae. Cervical spine vertebral body height is maint ained. There is no fracture. No significant STIR hyperintensity to suggest vertebral body edema or li gamentous injury. The visualized brain parenchyma, cervicomedullary junction, cervical cord, and the upper thoracic cor d have an overall normal size and signal intensity. 2 mm of anterolisthesis of C2 upon C3, 2 mm retro listhesis of C4 upon C5. C2-C3: There is broad based disc osteophyte complex that abuts the thecal sac. No significant central canal stenosis. Mild right foramina narrowing. Left neural foramen is patent. C3-C4: Broad based disc osteophyte complex abuts the thecal sac. Ventral subarachnoid space is efface d. There is deformity of the cervical cord without T2 hyperintensity in the cord. Mild central canal stenosis. Degenerative changes in the bilateral uncovertebral joints results in mild to moderate bila teral foraminal narrowing. C4-C5: There is a central disc protrusion that abuts the thecal sac. There is deformity of the centra l and right aspect of the cord. No T2 hyperintensity in the cord. There is at least moderate central canal stenosis. Degenerative changes in bilateral uncovertebral joints results in moderate to severe right and moderate left neural foraminal narrowing. C5-C6: There appears to be a broad based osteophyte ridge. There is at least mild central canal steno sis. Degenerative changes in bilateral uncovertebral joint results in moderate bilateral foraminal na rrowing. There is evidence of a disc prosthesis. C6-C7: There appears to be a disc prosthesis. Nevertheless, there appears to be broad based disc bulg e that results in moderate central canal stenosis. Degenerative changes in bilateral uncovertebral zarina ints results in moderate bilateral foraminal narrowing. C7-T1: No significant central canal stenosis or foraminal narrowing. IMPRESSION: 1. Postoperative changes of the cervical spine as above. There is significant central canal sten osis at C4-C5 and C5-C6. 2. Fusion changes from C5 through C7 with disc prosthesis at C5-C6 and C6-C7. POS: TRUE
== END 2018-05-07 15:27 | disposition home or self-care (01) ==
LOC: TBSIIMAG 15:26
PROVIDERS: ATTEND Neurological Surgery
DX: M48.02 Spinal stenosis, cervical region (principal); Z98.1 Arthrodesis status; Z96.698 Presence of other orthopedic joint implants
CPT/HCPCS: 72141

== ENCOUNTER 2020-12-29 15:14 | Outpatient (CLI) | payer BC | END 2020-12-29 15:15 | disposition home or self-care (01) | LOC: BICMRI 15:14 | PROVIDERS: ATTEND Family Medicine | DX: M23.92 Unspecified internal derangement of left knee (principal); S83.282A Other tear of lateral meniscus, current injury, left knee, initial encounter; M17.12 Unilateral primary osteoarthritis, left knee; M22.2X2 Patellofemoral disorders, left knee ==

== ENCOUNTER 2021-06-07 07:41 | Outpatient (CLI) | payer BC | END 2021-06-07 07:42 | disposition home or self-care (01) | LOC: TBSIIMAG 07:41 | PROVIDERS: ATTEND Neurological Surgery | DX: M47.812 Spondylosis without myelopathy or radiculopathy, cervical region (principal); M50.221 Other cervical disc displacement at C4-C5 level; M48.02 Spinal stenosis, cervical region; Z98.1 Arthrodesis status | CPT/HCPCS: 72141 ==

== ENCOUNTER 2021-06-24 17:34 | Outpatient (CLI) | payer BC ==
[2021-06-25 00:37] LABS: SARS-CoV-2 PCR by NAA Not Detected (NotDetected)
== END 2021-06-24 17:35 | disposition home or self-care (01) ==
LOC: LABBT 17:34
PROVIDERS: ATTEND Neurological Surgery
DX: Z01.812 Encounter for preprocedural laboratory examination (principal); M54.12 Radiculopathy, cervical region; Z20.822 Contact with and (suspected) exposure to COVID-19
CPT/HCPCS: U0003; U0005

== ENCOUNTER 2021-06-29 05:37 | Day surgery (SDC) | payer BC ==
[2021-06-28 10:43] VITALS: BMI 37.7
[2021-06-29] MEDS ORDERED: ceFAZolin 2 GM/DEX 5% 100 ML BAG ONE ×2 (05:57→10:40)
[2021-06-29] MEDS ORDERED: Fentanyl 100 MCG/2 ML VIAL ONE (06:13)
[2021-06-29] MEDS ORDERED: Dexmedetomidine 200 MCG/2 ML VIAL ONE (06:14)
[2021-06-29] MEDS ORDERED: Thrombin 5000 UNITS/5 ML VIAL ONE (06:25)
[2021-06-29] MEDS ORDERED: Dexamethasone 20 MG/5 ML VIAL ONE (07:10)
[2021-06-29] MEDS ORDERED: Lidocaine 1% PF 5 ML VIAL ONE (07:10)
[2021-06-29] MEDS ORDERED: PROPOFOL 200 MG/20 ML VIAL ONE (07:10)
[2021-06-29] MEDS ORDERED: Ketorolac Tromethamine 30 MG/ML VIAL ONE (07:10)
[2021-06-29] MEDS ORDERED: Rocuronium Bromide 10 MG/ML (10ML VIAL) ONE (07:10)
[2021-06-29] MEDS ORDERED: PHENYLEPHRINE-NS 100 MCG/ML 10 ML SYRINGE ONE (07:10)
[2021-06-29] MEDS ORDERED: Glycopyrrolate 0.2 MG/ML 5 ML SYRINGE ONE (07:10)
[2021-06-29] MEDS ORDERED: Ondansetron PF 4 MG/2 ML Vial ONE (07:10)
[2021-06-29] MEDS ORDERED: ePHEDrine 50 MG/ML VIAL ONE (07:10)
[2021-06-29] MEDS ORDERED: Tamsulosin HCl 0.4 MG CAP ONE (08:40)
== END 2021-06-29 11:50 | disposition home or self-care (01) ==
LOC: SDC 05:37
PROVIDERS: ATTEND Neurological Surgery
PROC: 0RG10A0 Fusion of Cervical Vertebral Joint with Interbody Fusion Device, Anterior Approach, Anterior Column, Open Approach (ICD-10-PCS; principal; 2021-06-29)
DX: M50.121 Cervical disc disorder at C4-C5 level with radiculopathy (principal); M50.021 Cervical disc disorder at C4-C5 level with myelopathy; M43.12 Spondylolisthesis, cervical region; M48.02 Spinal stenosis, cervical region; G89.29 Other chronic pain; E03.9 Hypothyroidism, unspecified; K21.9 Gastro-esophageal reflux disease without esophagitis; J30.2 Other seasonal allergic rhinitis; M19.90 Unspecified osteoarthritis, unspecified site; Z79.899 Other long term (current) drug therapy; Z88.5 Allergy status to narcotic agent; Z88.8 Allergy status to other drugs, medicaments and biological substances; Z98.1 Arthrodesis status
CPT/HCPCS: 76000; C1713; C1776; J1100; J1885; J2405; J2704; J3010; J3490

== ENCOUNTER 2022-01-16 07:20 | Outpatient (CLI) | payer BC ==
[2022-01-16] MEDS ORDERED: Magnevist 469MG/ML 20 ML VIAL ONE (15:06)
== END 2022-01-16 07:21 | disposition home or self-care (01) ==
LOC: BICMRI 07:20
PROVIDERS: ATTEND Family Medicine
DX: M50.10 Cervical disc disorder with radiculopathy, unspecified cervical region (principal); M47.22 Other spondylosis with radiculopathy, cervical region; Z98.890 Other specified postprocedural states
CPT/HCPCS: 72156; A9579

== ENCOUNTER 2022-03-10 07:59 | Outpatient (CLI) | payer BC | END 2022-03-10 08:00 | disposition home or self-care (01) | LOC: LABBT 07:59 | PROVIDERS: ATTEND Neurological Surgery | DX: Z20.822 Contact with and (suspected) exposure to COVID-19 (principal) | CPT/HCPCS: 87811 ==

== ENCOUNTER 2022-03-15 06:11 | Day surgery (SDC) | payer BC ==
[2022-03-13 13:21] VITALS: BMI 36.6
[2022-03-15] MEDS ORDERED: fentaNYL Citrate/PF 100 MCG/2 ML SYRINGE ONE ×2 (06:43→09:33)
[2022-03-15] MEDS ORDERED: Bupivacaine/Epinephrine 0.25% 30 ML VIAL ONE (07:01)
[2022-03-15] MEDS ORDERED: Thrombin 5000 UNITS/5 ML VIAL ONE (07:01)
[2022-03-15] MEDS ORDERED: CEFAZOLIN 2 GM VIAL ONE ×2 (07:32→11:15)
[2022-03-15] MEDS ORDERED: Sodium Chloride 0.9% 100 ML ONE ×2 (07:32→11:15)
[2022-03-15] MEDS ORDERED: EPINEPHrine 1 MG/ML AMP ONE (08:41)
[2022-03-15] MEDS ORDERED: Bupivacaine PF 0.5% 30 ML VIAL ONE (08:41)
[2022-03-15] MEDS ORDERED: Tamsulosin HCl 0.4 MG CAP ONE (09:26)
[2022-03-15] MEDS ORDERED: Dexamethasone 20 MG/5 ML VIAL ONE (10:13)
[2022-03-15] MEDS ORDERED: Ondansetron PF 4 MG/2 ML Vial ONE (10:13)
[2022-03-15] MEDS ORDERED: Lidocaine 1% PF 5 ML VIAL ONE (10:13)
[2022-03-15] MEDS ORDERED: Ketorolac Tromethamine 30 MG/ML VIAL ONE (10:13)
[2022-03-15] MEDS ORDERED: PROPOFOL 200 MG/20 ML VIAL ONE (10:13)
[2022-03-15] MEDS ORDERED: Glycopyrrolate 0.2 MG/ML 5 ML SYRINGE ONE (10:13)
[2022-03-15] MEDS ORDERED: Rocuronium Bromide 10 MG/ML (10ML VIAL) ONE (10:13)
[2022-03-15] MEDS ORDERED: traMADol HCl 50 MG TAB ONE (11:25)
== END 2022-03-15 12:15 | disposition home or self-care (01) ==
LOC: SDC 06:11
PROVIDERS: ATTEND Neurological Surgery
PROC: 01N10ZZ Release Cervical Nerve, Open Approach (ICD-10-PCS; principal; 2022-03-15)
DX: M54.12 Radiculopathy, cervical region (principal); M48.02 Spinal stenosis, cervical region; G89.4 Chronic pain syndrome; M19.90 Unspecified osteoarthritis, unspecified site; E07.9 Disorder of thyroid, unspecified; Z79.890 Hormone replacement therapy; Z79.899 Other long term (current) drug therapy; Z88.5 Allergy status to narcotic agent; Z88.8 Allergy status to other drugs, medicaments and biological substances; Z91.012 Allergy to eggs; Z98.1 Arthrodesis status
CPT/HCPCS: 76000; J0171; J0690; J1100; J1885; J2405; J2704; J2710; J3490; S0020

== ENCOUNTER 2022-03-28 09:16 | Outpatient (CLI) | payer BC | END 2022-03-28 09:17 | disposition home or self-care (01) | LOC: TBSIIMAG 09:16 | PROVIDERS: ATTEND Surgery | DX: M25.552 Pain in left hip (principal); M47.26 Other spondylosis with radiculopathy, lumbar region; M46.06 Spinal enthesopathy, lumbar region | CPT/HCPCS: 72100 ==